=== PATIENT | male | born 1945 | race Caucasian/White ===

== ENCOUNTER 2025-07-19 13:01 | Inpatient (IN) | payer OTHER ==
[2025-07-19 13:57] LABS: Analyzer IN Cardio ER; Base Excess -21.8 mEq/L (-2.0 to +3.0); Calcium, Ionized (venous) 1.32 mmol/L (1.16-1.32); Chloride (VBG) 96 mmol/L (98-106); Hematocrit-VBG 43 % (42.0-52.0); Hemoglobin (Hb) 14.7 g/dL (12.6-17.4); Potassium (VBG) 4.87 mmol/L (3.70-5.30); Sodium 137 mmol/L (133-146)
[2025-07-19 14:03] LABS: Actual Bicarbonate (HCO3v) 6.5 mEq/L (22-28)
[2025-07-19 14:10] LABS: #Basophils 0.06 10x3/uL (0.0-0.2); #Eosinophils 0.07 10x3/uL (0.0-0.7); #Monocytes 1.42 10x3/uL (0.11-0.59); #Neutrophils 11.27 10x3/uL (1.40-6.50); %Basophils 0.4 % (0.0-1.0); %Eosinophils 0.5 % (0.0-10.0); %Lymphocytes 4.8 % (21.0-51.0); %Monocytes 10.5 % (0.0-10.0); %Neutrophils 83.1 % (42.0-75.0); Hematocrit 43.5 % (42.0-52.0); Hemoglobin 13.8 g/dL (14.0-18.0); Mean Corpuscular Hemoglobin 31.4 pg (27.0-31.0); Mean Corpuscular Volume 98.9 fL (78.0-98.0); Platelet Count 214 10x3/uL (130-400); Red Blood Cell (RBC) Count 4.40 mill/uL (4.70-6.10); White Blood Cell (WBC) Count 13.57 10x3/uL (4.8-10.8)
[2025-07-19] MEDS ORDERED: INSULIN REGULAR IN 0.9 % NACL 100 ML ONE (14:12)
[2025-07-19 14:29] LABS: ALT (SGPT) 13 U/L (Less than 45); AST (SGOT) 13 U/L (11-34); Albumin 3.7 g/dL (3.1-4.5); Alkaline Phosphatase 122 U/L (40-110); Anion Gap 37 mmol/L (10-20); BUN (Urea Nitrogen) 20 mg/dL (8.4-25.7); Bilirubin, Total 0.8 mg/dL (0.3-1.2); Calc. Creatinine Clearance 0 mL/min (70-130); Calcium 10.1 mg/dL (7.8-10.44); Carbon Dioxide Less than 8 mmol/L (23-31); Chloride 96 mmol/L (98-107); Globulin 3.8 g/dL (2.4-3.5); Glucose 638 mg/dL (83-110); Magnesium 2.2 mg/dL (1.6-2.6); Potassium 4.7 mmol/L (3.5-5.1); Sodium 134 mmol/L (136-145)
[2025-07-19] MEDS ORDERED: NS 0.9% w/ 20 MEQ KCL 1,000 ML IV PRN (16:32)
[2025-07-19] MEDS ORDERED: Acetaminophen 325 MG TAB PO PRN (16:34)
[2025-07-19] MEDS ORDERED: Ondansetron PF 4 MG/2 ML Vial IVP PRN (16:34)
[2025-07-19 17:16] LABS: Anion Gap 34 mmol/L (10-20); BUN (Urea Nitrogen) 21 mg/dL (8.4-25.7); Calc. Creatinine Clearance 0 mL/min (70-130); Calcium 9.3 mg/dL (7.8-10.44); Carbon Dioxide Less than 8 mmol/L (23-31); Chloride 102 mmol/L (98-107); Glucose 541 mg/dL (83-110); Magnesium 2.1 mg/dL (1.6-2.6); Potassium 4.0 mmol/L (3.5-5.1); Sodium 137 mmol/L (136-145)
[2025-07-19 17:53] LABS: CAUTI Indications for Culture Dysuria,urgency,freq; Glucose, Urine (Dipstick) Greater than 1000 mg/dL (Negative); Leukocyte Negative Leu/uL (Negative); Protein, Urine (Dipstick) 20 mg/dL (Neg-Trace); Specific Gravity, Urine 1.024 (1.002-1.036); WBC/HPF 0-3 HPF (0-3)
[2025-07-19 17:57] LABS: Bacteria/HPF 1+ HPF (None Seen)
[2025-07-19 17:58] LABS: Urine Culture Reflex No No
[2025-07-19] MEDS: Electrolyte Replacement Protocol 1 EACH IVPB ONE (18:28)
[2025-07-19] MEDS: cefTRIAXone\\ROCEPHIN 1 GM in Sodium Chloride 0.9% 100 ML IVPB SCH (20:15)
[2025-07-19] MEDS: Pantoprazole 40 MG VIAL IVP SCH (20:16)
[2025-07-19] MEDS: Heparin 5,000 UNITS/ML VIAL SC SCH (20:17)
[2025-07-19 20:47] LABS: Anion Gap 27 mmol/L (10-20); BUN (Urea Nitrogen) 21 mg/dL (8.4-25.7); Calc. Creatinine Clearance 0 mL/min (70-130); Calcium 9.4 mg/dL (7.8-10.44); Carbon Dioxide 8 mmol/L (23-31); Chloride 109 mmol/L (98-107); Glucose 413 mg/dL (83-110); Potassium 4.2 mmol/L (3.5-5.1); Sodium 140 mmol/L (136-145)
[2025-07-19] MEDS: VANCOMYCIN 1.75 GM/350 ML Premix BAG IVPB SCH (21:38)
[2025-07-19] MEDS: NS 0.9% w/ 20 MEQ KCL 1,000 ML IV PRN (22:55)
[2025-07-19] MEDS: D5 1/2 NS w/20 mEq KCL 1,000 ML IV PRN (23:44)
[2025-07-19] MEDS: INSULIN REGULAR IN 0.9 % NACL 100 ML IVPB SCH (23:46)
[2025-07-20] MEDS: Dextrose 50% Abboject 50 ML SYRINGE SLOW IVP PRN (01:43)
[2025-07-20 03:43] LABS: Hematocrit 38.4 % (42.0-52.0); Hemoglobin 12.6 g/dL (14.0-18.0); Mean Corpuscular Hemoglobin 31.5 pg (27.0-31.0); Mean Corpuscular Volume 96.0 fL (78.0-98.0); Platelet Count 181 10x3/uL (130-400); Red Blood Cell (RBC) Count 4.00 mill/uL (4.70-6.10); White Blood Cell (WBC) Count 9.88 10x3/uL (4.8-10.8)
[2025-07-20 04:02] LABS: Vancomycin, Random 24.5 ug/mL (See Comment)
[2025-07-20 04:04] LABS: Anion Gap 9 mmol/L (10-20); BUN (Urea Nitrogen) 15 mg/dL (8.4-25.7); Calc. Creatinine Clearance 57 mL/min (70-130); Calcium 8.8 mg/dL (7.8-10.44); Carbon Dioxide 18 mmol/L (23-31); Chloride 116 mmol/L (98-107); Glucose 186 mg/dL (83-110); Potassium 3.4 mmol/L (3.5-5.1); Sodium 140 mmol/L (136-145)
[2025-07-20 04:18] LABS: Plasma Cells 1 % (0-0); Platelet Adequacy Comment Platelets Normal; Polychromasia SLIGHT = 2-3 cells HPF (0-2); Smudge Cells 1.9 %
[2025-07-20] MEDS: Insulin Glargine 30 UNITS/0.3 ML VIAL SC SCH ×2 (06:34→17:08)
[2025-07-20 06:49] VITALS: BMI 21.7
[2025-07-20 07:24] LABS: Anion Gap 14 mmol/L (10-20); BUN (Urea Nitrogen) 13 mg/dL (8.4-25.7); Calc. Creatinine Clearance 54 mL/min (70-130); Calcium 8.5 mg/dL (7.8-10.44); Carbon Dioxide 16 mmol/L (23-31); Chloride 115 mmol/L (98-107); Glucose 174 mg/dL (83-110); Potassium 3.5 mmol/L (3.5-5.1); Sodium 141 mmol/L (136-145)
[2025-07-20] MEDS ORDERED: Glucagon 1 MG/ML KIT IM PRN (08:38)
[2025-07-20] MEDS ORDERED: Dextrose 50% Abboject 50 ML SYRINGE SLOW IVP PRN (08:38)
[2025-07-20] MEDS ORDERED: Albuterol 200 PUFF (6.7GM INHALER) INH PRN (08:41)
[2025-07-20] MEDS: Potassium Chloride 20 MEQ in Premix 1 BAG IVPB SCH (08:42)
[2025-07-20] MEDS: Cholecalciferol (Vitamin D3) 400 UNITS TAB PO SCH (08:59)
[2025-07-20] MEDS: Metoprolol Succinate XL 50 MG ER.TAB PO SCH (08:59)
[2025-07-20] MEDS: Pantoprazole 40 MG VIAL IVP SCH (08:59)
[2025-07-20] MEDS ORDERED: Insulin Glargine 30 UNITS/0.3 ML VIAL SC SCH (09:00)
[2025-07-20] MEDS: PNEUMOC 20-VAL CONJ-DIP CRM/PF 0.5 ML SYRINGE IM ONE (10:30)
[2025-07-20 17:22] LABS: Glucose 344 mg/dL (83-110)
[2025-07-20 18:53] LABS: Anion Gap 17 mmol/L (10-20); BUN (Urea Nitrogen) 11 mg/dL (8.4-25.7); Calc. Creatinine Clearance 61 mL/min (70-130); Calcium 8.9 mg/dL (7.8-10.44); Carbon Dioxide 11 mmol/L (23-31); Chloride 111 mmol/L (98-107); Glucose 319 mg/dL (83-110); Potassium 4.1 mmol/L (3.5-5.1); Sodium 135 mmol/L (136-145)
[2025-07-20 19:54] LABS: Actual Bicarbonate (HCO3v) 16.8 mEq/L (22-28); Base Excess -8.2 mEq/L (-2.0 to +3.0); Calcium, Ionized (venous) 1.25 mmol/L (1.16-1.32); Chloride (VBG) 106 mmol/L (98-106); Hematocrit-VBG 40 % (42.0-52.0); Hemoglobin (Hb) 13.6 g/dL (12.6-17.4); Potassium (VBG) 3.83 mmol/L (3.70-5.30); Sodium 137 mmol/L (133-146)
[2025-07-20] MEDS ORDERED: Vancomycin 1 GM in Premix 1 BAG IVPB SCH (21:00)
[2025-07-20] MEDS: Vancomycin 1.25 GM / NS 250 ML VIAL-2-BAG IVPB SCH (22:38)
[2025-07-21 05:51] LABS: #Basophils 0.07 10x3/uL (0.0-0.2); #Eosinophils 0.23 10x3/uL (0.0-0.7); #Monocytes 1.51 10x3/uL (0.11-0.59); #Neutrophils 9.27 10x3/uL (1.40-6.50); %Basophils 0.5 % (0.0-1.0); %Eosinophils 1.7 % (0.0-10.0); %Lymphocytes 19.2 % (21.0-51.0); %Monocytes 10.9 % (0.0-10.0); %Neutrophils 66.8 % (42.0-75.0); Hematocrit 35.6 % (42.0-52.0); Hemoglobin 11.9 g/dL (14.0-18.0); Mean Corpuscular Hemoglobin 31.7 pg (27.0-31.0); Mean Corpuscular Volume 94.9 fL (78.0-98.0); Platelet Count 185 10x3/uL (130-400); Red Blood Cell (RBC) Count 3.75 mill/uL (4.70-6.10); White Blood Cell (WBC) Count 13.88 10x3/uL (4.8-10.8)
[2025-07-21 06:19] LABS: Anion Gap 13 mmol/L (10-20); BUN (Urea Nitrogen) 7 mg/dL (8.4-25.7); Calc. Creatinine Clearance 63 mL/min (70-130); Calcium 8.9 mg/dL (7.8-10.44); Carbon Dioxide 18 mmol/L (23-31); Chloride 110 mmol/L (98-107); Glucose 46 mg/dL (83-110); Potassium 2.9 mmol/L (3.5-5.1); Sodium 138 mmol/L (136-145)
[2025-07-21 07:35] LABS: Glucose 166 mg/dL (83-110)
[2025-07-21] MEDS: Potassium Chloride 20 MEQ in Premix 1 BAG IVPB SCH (08:40)
[2025-07-21 11:42] LABS: Glucose 170 mg/dL (83-110)
[2025-07-21 15:17] LABS: Anion Gap 11 mmol/L (10-20); BUN (Urea Nitrogen) 7 mg/dL (8.4-25.7); Calc. Creatinine Clearance 60 mL/min (70-130); Calcium 8.8 mg/dL (7.8-10.44); Carbon Dioxide 19 mmol/L (23-31); Chloride 107 mmol/L (98-107); Glucose 168 mg/dL (83-110); Potassium 3.6 mmol/L (3.5-5.1); Sodium 133 mmol/L (136-145)
[2025-07-21 17:55] LABS: Glucose 192 mg/dL (83-110)
[2025-07-21] MEDS: Insulin Glargine 30 UNITS/0.3 ML VIAL SC SCH (19:40)
[2025-07-21 20:42] LABS: Glucose 146 mg/dL (83-110)
[2025-07-22 05:25] LABS: Anion Gap 13 mmol/L (10-20); BUN (Urea Nitrogen) 7 mg/dL (8.4-25.7); Calc. Creatinine Clearance 62 mL/min (70-130); Calcium 9.0 mg/dL (7.8-10.44); Carbon Dioxide 20 mmol/L (23-31); Chloride 107 mmol/L (98-107); Glucose 113 mg/dL (83-110); Potassium 3.7 mmol/L (3.5-5.1); Sodium 136 mmol/L (136-145)
[2025-07-22 05:27] LABS: #Basophils 0.06 10x3/uL (0.0-0.2); #Eosinophils 0.17 10x3/uL (0.0-0.7); #Monocytes 0.80 10x3/uL (0.11-0.59); #Neutrophils 5.44 10x3/uL (1.40-6.50); %Basophils 0.7 % (0.0-1.0); %Eosinophils 1.9 % (0.0-10.0); %Lymphocytes 25.0 % (21.0-51.0); %Monocytes 9.1 % (0.0-10.0); %Neutrophils 61.7 % (42.0-75.0); Hematocrit 35.8 % (42.0-52.0); Hemoglobin 12.0 g/dL (14.0-18.0); Mean Corpuscular Hemoglobin 31.7 pg (27.0-31.0); Mean Corpuscular Volume 94.5 fL (78.0-98.0); Platelet Count 171 10x3/uL (130-400); Red Blood Cell (RBC) Count 3.79 mill/uL (4.70-6.10); White Blood Cell (WBC) Count 8.81 10x3/uL (4.8-10.8)
[2025-07-22 08:15] LABS: Glucose 124 mg/dL (83-110)
[2025-07-22] MEDS: Insulin Glargine 30 UNITS/0.3 ML VIAL SC SCH (08:27)
[2025-07-22] MEDS: Pantoprazole 40 MG DR.TAB PO SCH (08:28)
[2025-07-22 11:48] LABS: Glucose 226 mg/dL (83-110)
[2025-07-22 17:18] LABS: Glucose 270 mg/dL (83-110)
[2025-07-23 06:17] LABS: Hematocrit 34.8 % (42.0-52.0); Hemoglobin 11.5 g/dL (14.0-18.0); Mean Corpuscular Hemoglobin 31.5 pg (27.0-31.0); Mean Corpuscular Volume 95.3 fL (78.0-98.0); Platelet Count 180 10x3/uL (130-400); Red Blood Cell (RBC) Count 3.65 mill/uL (4.70-6.10); White Blood Cell (WBC) Count 9.12 10x3/uL (4.8-10.8)
[2025-07-23 06:28] LABS: Anion Gap 10 mmol/L (10-20); BUN (Urea Nitrogen) 7 mg/dL (8.4-25.7); Calc. Creatinine Clearance 52 mL/min (70-130); Calcium 8.8 mg/dL (7.8-10.44); Carbon Dioxide 25 mmol/L (23-31); Chloride 102 mmol/L (98-107); Glucose 155 mg/dL (83-110); Potassium 3.8 mmol/L (3.5-5.1); Sodium 133 mmol/L (136-145)
[2025-07-23 06:36] LABS: Anisocytosis SLIGHT = 6-15 cells HPF (0-5); Platelet Adequacy Comment Platelets Normal; Polychromasia SLIGHT = 2-3 cells HPF (0-2)
[2025-07-23] MEDS: Insulin Glargine 30 UNITS/0.3 ML VIAL SC SCH (09:52)
[2025-07-23 12:21] LABS: Glucose 201 mg/dL (83-110)
[2025-07-24 05:28] LABS: #Basophils 0.06 10x3/uL (0.0-0.2); #Eosinophils 0.14 10x3/uL (0.0-0.7); #Monocytes 1.08 10x3/uL (0.11-0.59); #Neutrophils 4.99 10x3/uL (1.40-6.50); %Basophils 0.7 % (0.0-1.0); %Eosinophils 1.5 % (0.0-10.0); %Lymphocytes 27.1 % (21.0-51.0); %Monocytes 11.9 % (0.0-10.0); %Neutrophils 54.8 % (42.0-75.0); Hematocrit 36.4 % (42.0-52.0); Hemoglobin 11.9 g/dL (14.0-18.0); Mean Corpuscular Hemoglobin 31.3 pg (27.0-31.0); Mean Corpuscular Volume 95.8 fL (78.0-98.0); Platelet Count 196 10x3/uL (130-400); Red Blood Cell (RBC) Count 3.80 mill/uL (4.70-6.10); White Blood Cell (WBC) Count 9.10 10x3/uL (4.8-10.8)
[2025-07-24 05:44] LABS: Anion Gap 12 mmol/L (10-20); BUN (Urea Nitrogen) 8 mg/dL (8.4-25.7); Calc. Creatinine Clearance 54 mL/min (70-130); Calcium 9.1 mg/dL (7.8-10.44); Carbon Dioxide 25 mmol/L (23-31); Chloride 103 mmol/L (98-107); Glucose 186 mg/dL (83-110); Potassium 3.6 mmol/L (3.5-5.1); Sodium 136 mmol/L (136-145)
[2025-07-24 16:13] VITALS: BP 124/76; TEMP 97.6
== END 2025-07-24 20:17 | DRG 871 ==
LOC: ERS 13:01 → EEVIPCON 16:35 → IMCU/EMU 16:35 → T4-A 07-20 18:58
PROVIDERS: ADMIT Family Medicine; ATTEND Family Medicine
DX: A41.9 Sepsis, unspecified organism (principal); E11.10 Type 2 diabetes mellitus with ketoacidosis without coma; G93.41 Metabolic encephalopathy; J96.01 Acute respiratory failure with hypoxia; N17.9 Acute kidney failure, unspecified; E87.1 Hypo-osmolality and hyponatremia; J44.9 Chronic obstructive pulmonary disease, unspecified; E78.5 Hyperlipidemia, unspecified; E03.9 Hypothyroidism, unspecified; I12.9 Hypertensive chronic kidney disease with stage 1 through stage 4 chronic kidney disease, or unspecified chronic kidney disease; N18.9 Chronic kidney disease, unspecified; Z86.718 Personal history of other venous thrombosis and embolism; Z79.51 Long term (current) use of inhaled steroids; Z79.899 Other long term (current) drug therapy
CPT/HCPCS: 36415; 36416; 70450; 71045; 80048; 80053; 80202; 81001; 82010; 82805; 83036; 83605; 83735; 84100; 84145; 84484; 84681; 85025; 86141; 87040; 87633; 90471; 90677; 93005; 94640; 94660; 94760; 96374; G0009; J0696; J1644; J1815; J2470; J3373; J3375; J3480; J7030; J7050; J7620; J7999